=== PATIENT | female | born 1980 | race Caucasian/White ===

== ENCOUNTER 2016-11-24 19:33 | Emergency (ER) | payer BC ==
[~2016-11-24] VITALS: Ht 165.1 cm; Wt 102.5 kg
[2016-11-24 20:37] VITALS: BP 142/81
--- NOTE | 2016-11-24 21:44 | PHYS DOC ---
Past Medical History Past Medical History: No Pertinent History Past Surgical History: Tonsillectomy Alcohol Use: None Drug Use: None Adult General Chief Complaint Chief Complaint: LACERATION/AVULSION HPI HPI Patient is a 36 year old female who presents with right thumb laceration that occurred while cutting an orange on a mandolin slicer. Review of Systems Review of Systems Constitutional: Denies fever or chills [] Eyes: Denies change in visual acuity, redness, or eye pain [] Musculoskeletal: Denies back pain or joint pain [] Integument:right thumb laceration Neurologic: Denies headache, focal weakness or sensory changes [] Endocrine: Denies polyuria or polydipsia [] Allergies Allergies Allergies Coded Allergies Type Severity Reaction Last Updated Verified No Known Drug Allergies 11/24/16 No Physical Exam Physical Exam Constitutional: Well developed, well nourished, no acute distress, non-toxic appearance. [] HENT: Normocephalic, atraumatic, bilateral external ears normal, oropharynx moist, no oral exudates, nose normal. [] Skin: Right distal lateral thumb with a superficial 1 cm laceration. There is no obvious tendon involvement. Full range of motion to the right thumb with adequate flexion and extension of the thumb. +2 right radial pulse. Adequate radial sensation to the right thumb. Cap refill less than 2 seconds the right thumb. Back: No tenderness, no CVA tenderness. [] Extremities: No tenderness, no cyanosis, no clubbing, ROM intact, no edema. [] Neurologic: Alert and oriented X 3, normal motor function, normal sensory function, no focal deficits noted. [] Psychologic: Affect normal, judgement normal, mood normal. [] Current Patient Data Vital Signs Vital Signs Date Time Temp Pulse Resp B/P Pulse Ox O2 Delivery O2 Flow Rate FiO2 11/24/16 20:37 97.8 98 16 100 Room Air 97.8 EKG EKG [] Radiology/Procedures Radiology/Procedures [] Course & Med Decision Making Course & Med Decision Making Pertinent Labs and Imaging studies reviewed. (See chart for details) Patient is in the ED to be evaluated for right thumb laceration. The laceration is very superficial and does not need stitches. She was given tetanus in the ED. She was instructed to keep the area clean and dry. Neosporin recommended to the area. Provided return precautions and discharged in stable condition. Mary Carmen Disclaimer Suzanneon Disclaimer This electronic medical record was generated, in whole or in part, using a voice recognition dictation system. Departure Departure Impression: Primary Impression: Finger laceration Disposition: 01 HOME, SELF-CARE Condition: STABLE Referrals: ROSELIA SARKAR MD (PCP) Follow-up with your doctor in 1-2 weeks as needed Patient Instructions: Fingertip Laceration Additional Instructions: You were seen for right thumb laceration. The laceration is superficial and does not need stitches. Keep it clean and dry. Apply Neosporin to eat twice a day. Watch it for signs and symptoms of infection including increased redness warmth or odor drainage from the area and return to the ED if they occur. Follow -up with the primary care doctor in 1-2 weeks as needed. Problem Qualifiers Primary Impression: Finger laceration Encounter type: initial encounter Qualified Code: S61.219A - Laceration without foreign body of unspecified finger without damage to nail, initial encounter CHETNA MA APRN Nov 24, 2016 21:44
[2016-11-24] MEDS ORDERED: DIPHTH,PERTUSS(ACELL),TET TOX 0.5 ML DISP.SYRIN. VAX IM ONE (21:45)
[2016-11-24] MEDS ORDERED: NEOMY/BACITR/POLYMYXIN OINT PACKET. TP ONE (22:15)
== END 2016-11-24 21:50 | disposition home or self-care (01) ==
LOC: ER 19:33
DX: S61.011A Laceration without foreign body of right thumb without damage to nail, initial encounter (principal); W26.8XXA Contact with other sharp object(s), not elsewhere classified, initial encounter; Y93.89 Activity, other specified; Y92.89 Other specified places as the place of occurrence of the external cause; Y99.8 Other external cause status
CPT/HCPCS: 90471; 90715; 99283-25